=== PATIENT | male | born 1975 | race African-American/Black ===

== ENCOUNTER 2016-05-28 16:07 | Emergency (ER) | payer MEDICAID ==
[~2016-05-28] VITALS: Ht 167.6 cm; Wt 77.0 kg
[2016-05-28] MEDS ORDERED: TETANUS AND DIPHTHERIA TOX/PF 0.5ML SYR (ADULT) IM ONE (18:00)
[2016-05-28] MEDS ORDERED: IBUPROFEN 600MG TABLET PO ONE (18:00)
[2016-05-28] MEDS ORDERED: BACITRACIN ZINC OINT UDPKT TOP ONE (18:00)
[2016-05-28] MEDS ORDERED: TETANUS, DIPHTHERIA, PERTUSSIS VAC/PF 0.5ML (>7YR OLD) IM ONE (18:15)
[2016-05-28 18:39] VITALS: BP 115/67
== END 2016-05-28 18:44 | disposition home or self-care (01) ==
LOC: ER 17:40
DX: S71.151A Open bite, right thigh, initial encounter (principal); W54.0XXA Bitten by dog, initial encounter; Y93.89 Activity, other specified; Y99.8 Other external cause status; Y92.89 Other specified places as the place of occurrence of the external cause
CPT/HCPCS: 90471; 90714; 90715; 99284

== ENCOUNTER 2017-05-19 02:38 | Emergency (ER) | payer MEDICAID ==
[~2017-05-19] VITALS: Ht 167.6 cm; Wt 77.0 kg
[2017-05-19] MEDS ORDERED: IBUPROFEN 600MG TABLET PO STA (03:11)
[2017-05-19 03:56] LABS: BASOPHILS % 1.5 % (0.0-2.0); EOSINOPHILS % 7.4 % (0.0-5.0); HEMATOCRIT. 39.9 % (42.0-52.0); HEMOGLOBIN. 13.7 g/dL (14.0-18.0); LYMPHOCYTES % 35.5 % (20.0-50.0); MEAN CORPUSCULAR HEMOGLOBIN 30.5 pg (28.0-32.0); MEAN CORPUSCULAR VOLUME 88.7 fL (80.0-94.0); MEAN PLATELET VOLUME 7.1 fl (7.4-10.4); MONOCYTES % 12.9 % (2.0-8.0); NEUTROPHILS % 42.7 % (40.0-76.0); PLATELET 272 x1000/uL (130-400); RED CELL DISTRIBUTION WIDTH 13.8 % (11.6-14.6)
[2017-05-19 04:03] LABS: CHLORIDE 107 mEq/L (98-107)
[2017-05-19 05:08] VITALS: BP 105/64
== END 2017-05-19 05:09 | disposition home or self-care (01) ==
LOC: ER 02:38
DX: R07.89 Other chest pain (principal); F12.10 Cannabis abuse, uncomplicated
CPT/HCPCS: 36415; 71045; 80053; 84484; 85025; 93005; 99285

== ENCOUNTER 2018-02-15 12:13 | Emergency (ER) | payer OTHER, MEDICAID ==
[~2018-02-15] VITALS: Ht 175.3 cm; Wt 84.0 kg
[2018-02-15] MEDS ORDERED: KETOROLAC 60MG/2ML VIAL IM ONE (14:30)
[2018-02-15] MEDS ORDERED: ONDANSETRON HCL 4MG/2ML INJ IM ONE (14:30)
[2018-02-15] MEDS ORDERED: LOPERAMIDE HCL 2MG CAPSULE PO ONE (14:30)
[2018-02-15 16:35] VITALS: BP 114/78
== END 2018-02-15 16:36 | disposition home or self-care (01) ==
LOC: ER 12:13
DX: K52.9 Noninfective gastroenteritis and colitis, unspecified (principal); F12.10 Cannabis abuse, uncomplicated; J45.909 Unspecified asthma, uncomplicated
CPT/HCPCS: 96372; 99283; J1885; J2405; 99284